=== PATIENT | female | born 1980 | race Caucasian/White ===

== ENCOUNTER 2017-03-13 14:11 | Emergency (ER) | payer OTHER ==
[~2017-03-13] VITALS: Ht 167.6 cm; Wt 77.5 kg
[2017-03-13 14:14] VITALS: BP 111/71; PULSE 92; TEMP 36.7; O2SAT 97; Ht 167.6 cm; Wt 77.5 kg
[2017-03-13] MEDS ORDERED: MoRPHine SULFATE 4 MG/ML 1 ML CARP\\VIAL IV STA (14:28)
[2017-03-13] MEDS ORDERED: CLINDAMYCIN 600 MG/54 ML D5W IV ONE (14:30)
--- NOTE | 2017-03-13 14:35 | EMERGENCY ROOM VISIT NOTE ---
ED Visit Note First contact with patient: 14:19 CHIEF COMPLAINT: Toothache HISTORY OF PRESENT ILLNESS: This 36 year old female patient presented to the emergency department ambulatory with a progressive toothache for past to days. The patient believes it is coming from right lower molar. The pain is now steady and severe and radiates to the face. The patient does not a dentist appointment set up but states her father is trying to find an appointment for her and will pay for it and she does not have insurance. They rate their pain a 10/10 and the ibuprofen and Tylenol they have been taking has not relieved the pain. She reports swelling to the right lower jaw. The patient denies any discharge from the mouth. REVIEW OF SYSTEMS: A 10 system review of systems was completed with positives and pertinent negatives listed in the HPI. ALLERGIES: Penicillin, Bactrim, Macrobid MEDICATIONS: Patient denies PMH: Patient denies SOCIAL HISTORY: The patient is a smoker. She lives locally PHYSICAL EXAM: Vitals are noted on the nurse's note and reviewed by myself. Vital signs stable. Temperature 36.7C orally. GENERAL: This is a 36-year-old female, in no acute distress, nondiaphoretic, well-developed well-nourished. Mouth: The right lower tooth is very carious and the gum is swollen and tender around it, there is some bloody discharge. The remainder of the pharynx and tonsils are without erythema, edema, or exudate. The airway is patent. There is right lower jaw swelling and tenderness but no cervical or submandibular lymphadenopathy. There is no swelling beneath the tongue. The patient appears uncomfortable and in pain. The patient has overall fair dental hygiene. ED COURSE: The patient was seen and examined. Previous visits were reviewed. The patient is nontoxic in appearance. She does appear to have a dental infection. She does have swelling to the right lower jaw. She is afebrile. The patient stated that she does not take any medications. I did review the prescription drug monitoring website. According to the website, the patient had been regularly filling Suboxone until 01/15/2017. She was also prescribed and filled clonazepam once in January and once on 03/06/2017. When I asked the patient about her medications she told me she does not take any medications. When I asked about the Suboxone, she stated she hasn't taken it since last year. When I advised her that she filled it in December of this year she stated that she meant to tell me it was last year that she stopped taking it. She states she was on the Suboxone for heroin abuse. I advised the patient that I could give her pain medication while she was in the emergency department but did not feel comfortable prescribing narcotics for this visit. I did advise her that she will require an antibiotic and plan to prescribe clindamycin. She does have a history of opioid abuse, has been on Suboxone for it and was not completely truthful about her medication history. I did order IV clindamycin, IV labs and IV morphine. After the orders were placed, I was told by the nurse that the patient stated she was leaving. She apparently got up and walked out of the room and out of the emergency department. She told the nurse that her father was able to get her a dentist appointment. I was not able to get an AMA form and did not have time to get her any discharge instructions or prescriptions. Current/Historical Medications Unable to Obtain Active Prescriptions or Reported Meds Vital Signs Date Time Temp Pulse Resp B/P (MAP) Pulse Ox O2 Delivery O2 Flow Rate FiO2 03/13/17 14:14 36.7 92 18 111/71 97 Room Air Laboratory Results Departure Information Impression Primary Impression: Dental infection Dispostion Against Medical Advice Prescriptions Unable to Obtain Active Prescriptions or Reported Meds Referrals No Doctor, Assigned (PCP) Patient Instructions My [facility]
== END 2017-03-13 14:30 | disposition home or self-care (01) ==
LOC: C.EDB 14:12 → C.EDD 14:30
DX: K04.7 Periapical abscess without sinus (principal); F17.200 Nicotine dependence, unspecified, uncomplicated

== ENCOUNTER 2018-03-03 19:39 | Emergency (ER) | payer OTHER ==
[~2018-03-03] VITALS: Ht 167.6 cm; Wt 80.6 kg
[2018-03-03 19:50] VITALS: TEMP 37; Ht 167.6 cm; Wt 80.6 kg
[2018-03-03] MEDS ORDERED: IBUPROFEN 600 MG TAB PO STA (20:58)
[2018-03-03] MEDS ORDERED: CLINDAMYCIN 150MG HOME PACK PO ONE (21:00)
[2018-03-03] MEDS ORDERED: CLIN300C2 PO (21:04)
--- NOTE | 2018-03-03 21:04 | EMERGENCY ROOM VISIT NOTE ---
History First contact with patient: 20:17 Chief Complaint: DENTAL PAIN Stated Complaint: SEVERE MOUTH PAIN,TOOTH BROKE OFF Nursing Triage Summary: Pt reports left sided top and bottom dental pain. Pain started 3 days ago. Pt reports that she can't get into dentist till April. History of Present Illness The patient is a 37 year old female who presents to the Emergency Room with complaints of dental pain. The patient states that she has a history of "bad teeth." She states that over the past few weeks her teeth has started breaking off. She has had pain, primarily on the left side for the past 3 days. Her pain worsened last night. She states that her teeth are very sensitive to hot and cold. She has been using Orajel without relief. She rates her overall discomfort an 8/10. She denies fevers, drainage or facial swelling. She does have an appointment with an oral surgeon in 2 months. Review of Systems A complete 10 point review of systems was reviewed with the patient with pertinent positives and negatives as per history of present illness. All else were negative. Past Medical/Surgical History Medical Problems: (1) No significant active problems Social History Smoking Status: Current Every Day Smoker Alcohol Use: none Housing Status: lives with significant other Current/Historical Medications Scheduled Clindamycin Hcl (Cleocin), 300 MG PO QID Physical Exam Vital Signs Date Time Temp Pulse Resp B/P (MAP) Pulse Ox O2 Delivery O2 Flow Rate FiO2 03/03/18 19:50 37.0 98 18 117/77 100 Room Air Physical Exam VITALS: Vitals are noted on the nurse's note and reviewed by myself. Vital signs stable. GENERAL: This is a 37-year-old female, in no acute distress, nondiaphoretic, well-developed well-nourished. SKIN: The skin was without rashes EARS: External auditory canals clear, tympanic membranes pearly dao without erythema or effusion bilaterally. EYES: Pupils equal round and reactive to light and accommodation. MOUTH: Mucous membranes moist. Poor dentition and multiple dental caries. No significant swelling of the gums. No facial swelling. No drainage per NECK: Supple without nuchal rigidity. No lymphadenopathy. HEART: Regular rate and rhythm without murmurs gallops or rubs. LUNGS: Clear to auscultation bilaterally without wheezes, rales or rhonchi. NEURO: Patient was alert and oriented to person place and time. Medical Decision & Procedures Medical Decision Differential diagnosis includes dental infection, dental caries, Corbin's angina , abscess, among others. The patient was evaluated as above. She presents with dental pain. Exam shows no evidence of significant dental abscess or Corbin's angina. Patient will be placed on clindamycin. She was given a dose of ibuprofen for pain. She was advised to follow-up with the oral surgeon as scheduled or sooner if possible. She was given dental wax to help with the sensitivity. She verbalized understanding of my assessment and treatment plan and was discharged home in good condition. Medication Reconcilliation Current Medication List: was personally reviewed by me Blood Pressure Screening Patient's blood pressure: Normal blood pressure Impression Primary Impression: Dentalgia Departure Information Dispostion Home / Self-Care Condition GOOD Prescriptions Clindamycin Hcl (CLEOCIN) 300 Mg Cap 300 MG PO QID for 10 Days, #40 CAP Prov: Pari Womack .YOUSIF 03/03/18 Referrals No Doctor, Assigned (PCP) Patient Instructions My [facility] Additional Instructions You have been treated in the Emergency Department for Dental Pain. You were prescribed clindamycin to be taken 4 times daily as directed. This is an antibiotic. All antibiotics have the potential to cause diarrhea. Stop this medication and contact a medical provider if you were to develop any significant adverse side effects including: wheezing, shortness of breath, passing out, vomiting, or a diffuse rash. Always take antibiotics as directed and COMPLETE the ENTIRE course regardless of the improvement of your symptoms. For pain control, you can use the following [id number] medicines (if >12 yo): - Regular strength (325mg/tab) Tylenol (acetaminophen) 2 tabs every 4-6 hours as needed. Do not exceed 12 tablets in a 24 hour period. Avoid taking more than 4 grams (4000 mg) of Tylenol per day. This includes any other sources of acetaminophen you may take on a regular basis. - Regular strength (200 mg/tab) Advil (ibuprofen) 1-2 tabs every 4-6 hours as needed. Do not exceed a dose of 3200 mg per day. Refrain from smoking cigarettes or using chewing tobacco until you have been evaluated by your dentist. Keeping beverages lukewarm and consuming soft foods can decrease your pain. Warm compresses over the affected area may offer some relief. You MUST seek evaluation of your dental pain by a dentist following your visit to the Emergency Department. The Emergency Department is not capable of treating dental issues long-term. You should call your dentist as soon as possible to make an appointment for evaluation of your dental pain. Return to the emergency department if you develop the following symptoms despite treatment course outlined above: fever, intractable pain, increased redness, swelling, or purulent discharge.
[2018-03-03 21:53] VITALS: BP 112/71; PULSE 93; O2SAT 100
== END 2018-03-03 22:07 | disposition home or self-care (01) ==
LOC: C.EDB 19:40 → C.EDD 22:07
DX: K02.9 Dental caries, unspecified (principal); F17.210 Nicotine dependence, cigarettes, uncomplicated